=== PATIENT | female | born 1950 ===

== ENCOUNTER 2021-11-21 13:52 | Inpatient (IN) | payer MEDICARE ==
[~2021-11-21] VITALS: Ht 170.2 cm; Wt 81.9 kg
[2021-11-21] MEDS ORDERED: MORPHINE SULFATE 4 MG/ML SYR/VIAL IV ONE (15:00)
[2021-11-21] MEDS ORDERED: ONDANSETRON HCL 4 MG/2 ML VIAL IV ONE (15:00)
[2021-11-21] MEDS ORDERED: MORPHINE SULFATE INJECTION 2 MG/ML SYRG IV PRN ×3 (16:00→18:00)
[2021-11-21] MEDS ORDERED: ONDANSETRON HCL 4 MG/2 ML VIAL IV PRN (16:00)
[2021-11-21] MEDS ORDERED: NITROGLYCERIN 0.4 MG SL TAB SL PRN ×2 (16:00→18:00)
[2021-11-21] MEDS: SODIUM CHLORIDE 0.9% 1,000 ML IV SCH (16:22)
[2021-11-21 16:26] LABS: Urine Bacteria NONE SEEN /hpf (None Seen); Urine Blood Negative /uL (Negative); Urine Specific Gravity 1.014 (1.001-1.035); Urine WBC 1 /hpf (0 - 5)
[2021-11-21 16:33] LABS: Basophils # (auto) 0 10 ^3/uL (0-0.2); Basophils % (auto) 0.2 % (0.0-2.0); Eosinophils # (auto) 0 10 ^3/uL (0-0.8); Eosinophils % (auto) 0.3 % (0.0-7.0); Hematocrit 41.1 % (36.0-46.0); Hemoglobin 13.7 g/dL (12.2-16.2); Lymphocytes # (auto) 2.1 10 ^3/uL (0.4-5.4); Lymphocytes % (auto) 15.3 % (10.0-50.0); Mean Corpuscular Hemoglobin 29.7 pg (28.0-32.0); Mean Corpuscular Hgb Conc. 33.5 g/dL (32.0-36.0); Mean Corpuscular Volume 88.9 fL (80.0-100.0); Monocytes # (auto) 0.8 10 ^3/uL (0-1.3); Monocytes % (auto) 5.7 % (0.0-12.0); Neutrophils # (auto) 10.9 10 ^3/uL (1.6-8.6); Neutrophils % (auto) 78.5 % (37.0-80.0); Red Blood Cells 4.62 10^6/uL (4.0-5.20); Red Cell Distribution Width 13.1 % (11.8-14.3); White Blood Cell 13.9 10^3/uL (4.4-10.8)
[2021-11-21 16:58] LABS: INR 1.05 (0.9-1.15); Partial Thromboplastin Time 28.8 sec (23.6-33.0)
[2021-11-21 17:05] LABS: Calcium 8.7 mg/dL (8.5-10.1)
[2021-11-21 17:09] LABS: BUN/Creatinine Ratio 23.1; Bilirubin, Total 0.4 mg/dL (0.2-1.0); Total Protein 7.6 g/dL (6.4-8.2)
[2021-11-21 17:49] VITALS: BP 151/67
[2021-11-21] MEDS ORDERED: ceFAZolin 1GM/50ML 50 ML IV ONE (18:00)
[2021-11-21] MEDS ORDERED: HYDROcodone-ACET 5/325MG TAB PO PRN (18:00)
[2021-11-21] MEDS ORDERED: LORazepam 0.5 MG TAB PO PRN (18:00)
[2021-11-21] MEDS ORDERED: ACETAMINOPHEN 325 MG TAB PO PRN (18:00)
[2021-11-21] MEDS ORDERED: CALCIUM W/VIT D (600MG/400IU) TAB PO ONE (18:00)
[2021-11-21] MEDS ORDERED: ALUM & MAG HYDROX-SIMETH LIQ(MAALOX) 30 ML PO PRN (18:00)
[2021-11-21] MEDS ORDERED: DOCUSATE SOD 100 MG CAP PO PRN (18:00)
[2021-11-21 18:27] LABS: Cholesterol 201 mg/dL (< 200)
[2021-11-21 18:30] LABS: HDL Cholesterol 85 mg/dL (40-59); LDL Cholesterol 77 mg/dL (< 100); Triglycerides 95 mg/dL (< 150)
[2021-11-21] MEDS: CALCIUM W/VIT D (600MG/400IU) TAB PO SCH (18:33)
[2021-11-21 22:00] VITALS: BP 134/69
[2021-11-22] MEDS: ceFAZolin 1GM/50ML 50 ML IV SCH ×3 (02:00→17:52)
[2021-11-22 05:00] VITALS: BP 146/78
[2021-11-22 06:21] LABS: Basophils # (auto) 0 10 ^3/uL (0-0.2); Basophils % (auto) 0.4 % (0.0-2.0); Eosinophils # (auto) 0.1 10 ^3/uL (0-0.8); Eosinophils % (auto) 0.7 % (0.0-7.0); Hematocrit 36.2 % (36.0-46.0); Hemoglobin 12.4 g/dL (12.2-16.2); Lymphocytes # (auto) 2.5 10 ^3/uL (0.4-5.4); Mean Corpuscular Hemoglobin 30.1 pg (28.0-32.0); Mean Corpuscular Hgb Conc. 34.3 g/dL (32.0-36.0); Mean Corpuscular Volume 87.7 fL (80.0-100.0); Monocytes # (auto) 0.7 10 ^3/uL (0-1.3); Neutrophils # (auto) 5.4 10 ^3/uL (1.6-8.6); Neutrophils % (auto) 61.9 % (37.0-80.0); Nucleated Red Blood Cells % 0.1 %; Red Blood Cells 4.13 10^6/uL (4.0-5.20); Red Cell Distribution Width 13.2 % (11.8-14.3); White Blood Cell 8.7 10^3/uL (4.4-10.8)
[2021-11-22 07:13] LABS: INR 1.02 (0.9-1.15); Partial Thromboplastin Time 28.5 sec (23.6-33.0)
[2021-11-22 08:43] LABS: Albumin 3.1 g/dL (3.4-5.0); BUN/Creatinine Ratio 13.5; Bilirubin, Total 0.6 mg/dL (0.2-1.0); Magnesium 2.1 mg/dL (1.6-2.6); Phosphorus 3.8 mg/dL (2.5-4.90); Total Protein 6.2 g/dL (6.4-8.2)
[2021-11-22 09:00] VITALS: BP 146/81
[2021-11-22 09:21] LABS: Alcohol, Urine < 3.0 mg/dL (0-10); Amphetamine Screen, Urine NEGATIVE (NEGATIVE); Barbiturate Scree,Urine NEGATIVE (NEGATIVE); Benzodiazephine Screen, Urine NEGATIVE (NEGATIVE); Cannabinoid Screen, Urine NEGATIVE (NEGATIVE); Cocaine Screen, Urine NEGATIVE (NEGATIVE); Opiate Scree,Urine NEGATIVE (NEGATIVE); Phencyclidine Screen, Urine NEGATIVE (NEGATIVE)
[2021-11-22 09:31] LABS: Urine Bacteria NONE SEEN /hpf (None Seen); Urine Blood Negative /uL (Negative); Urine Specific Gravity 1.004 (1.001-1.035); Urine WBC 1 /hpf (0 - 5)
[2021-11-22] MEDS: SODIUM CHLORIDE 0.9% 1,000 ML IV SCH (10:18)
[2021-11-22] MEDS: CALCIUM W/VIT D (600MG/400IU) TAB PO SCH ×2 (10:18→17:53)
[2021-11-22] MEDS: ENOXAPARIN SOD 40 MG/0.4 ML SYRINGE SC SCH (10:19)
[2021-11-22 13:00] VITALS: BP 133/76
[2021-11-22 17:00] VITALS: BP 143/76
[2021-11-22 22:22] VITALS: BP 145/84
[2021-11-23] VITALS (18 sets, daily range): BP systolic 110–152; BP diastolic 48–77
[2021-11-23] MEDS: ceFAZolin 1GM/50ML 50 ML IV SCH ×3 (01:40→18:44)
[2021-11-23] MEDS: SODIUM CHLORIDE 0.9% 1,000 ML IV SCH (03:42)
[2021-11-23] MEDS ORDERED: SUCCINYLCHOLINE CHLORIDE 20 MG/ML 10ML VIAL IV ONE (07:43)
[2021-11-23] MEDS ORDERED: TETRACAINE 1% INJ 2 ML VIAL IJ ONE (07:43)
[2021-11-23] MEDS ORDERED: ceFAZolin 1GM/50ML 100 ML IV ONE (07:44)
[2021-11-23] MEDS ORDERED: MORPHINE SULF PF 2 MG/2 ML SYRG ONE ×3 (07:45→08:59)
[2021-11-23] MEDS ORDERED: fentaNYL CITRATE 100 MCG/2 ML VL ONE (07:45)
[2021-11-23] MEDS ORDERED: KETAMINE HCL 10 ML ONE (07:45)
[2021-11-23] MEDS ORDERED: MIDAZOLAM HCL 2MG/2ML 2ml VIAL (1mg/ml) ONE (07:45)
[2021-11-23] MEDS ORDERED: PROPOFOL 10 MG/ML 20 ML IV ONE (07:46)
[2021-11-23] MEDS ORDERED: ONDANSETRON HCL 4 MG/2 ML VIAL ONE (07:46)
[2021-11-23] MEDS ORDERED: PHENYLEPHRINE HCL 10 MG/ML VL ONE (07:46)
[2021-11-23] MEDS ORDERED: ePHEDrine SULFATE 50 MG/ML AMP ONE (07:46)
[2021-11-23] MEDS ORDERED: GLYCOPYRROLATE 0.2 MG/ML 1ML VIAL ONE (07:46)
[2021-11-23] MEDS ORDERED: ceFAZolin 1GM/50ML 50 ML IV ONE (07:49)
[2021-11-23] MEDS ORDERED: VANCOMYCIN HCL 1000 MG VL ONE (07:59)
[2021-11-23] MEDS: KETOROLAC TROMETH 30 MG/ML 1ML VIAL ONE ×2 (07:59→08:40)
[2021-11-23] MEDS: CALCIUM W/VIT D (600MG/400IU) TAB PO SCH ×2 (08:00→18:44)
[2021-11-23] MEDS: ENOXAPARIN SOD 40 MG/0.4 ML SYRINGE SC SCH (10:00)
[2021-11-23] MEDS ORDERED: BISACODYL 5 MG EC TAB PO PRN (10:15)
[2021-11-23] MEDS ORDERED: NALOXONE HCL 0.4 MG/ML VIAL IV PRN (10:15)
[2021-11-23] MEDS ORDERED: ONDANSETRON HCL 4 MG/2 ML VIAL IV PRN ×2 (10:15)
[2021-11-23] MEDS ORDERED: diphenhdrAMINE HCL 50 MG/1 ML VL IV PRN (10:15)
[2021-11-23] MEDS ORDERED: KETOROLAC TROMETH 30 MG/ML 1ML VIAL IV ONE (10:15)
[2021-11-23] MEDS ORDERED: DexAMETHasone SOD PHOS 10MG/1ML VIAL INJ IV PRN (10:15)
[2021-11-23] MEDS ORDERED: KETOROLAC TROMETH 30 MG/ML 1ML VIAL IV PRN (10:15)
[2021-11-23] MEDS: LACTATED RINGER'S 1,000 ML IV SCH ×2 (11:13→22:41)
[2021-11-23] MEDS: SODIUM CHLOR 0.9% PF (SALINE LOCK) 10ML VIAL/SYR IV SCH ×2 (13:41→22:35)
[2021-11-23] MEDS: DOCUSATE SOD 100 MG CAP PO SCH (22:35)
[2021-11-24] VITALS (14 sets, daily range): BP systolic 103–139; BP diastolic 58–86
[2021-11-24] MEDS: ceFAZolin 1GM/50ML 50 ML IV SCH (00:23)
[2021-11-24 05:06] LABS: Basophils # (auto) 0 10 ^3/uL (0-0.2); Basophils % (auto) 0.5 % (0.0-2.0); Eosinophils # (auto) 0.2 10 ^3/uL (0-0.8); Eosinophils % (auto) 2.5 % (0.0-7.0); Hematocrit 33.8 % (36.0-46.0); Hemoglobin 11.5 g/dL (12.2-16.2); Lymphocytes # (auto) 2.5 10 ^3/uL (0.4-5.4); Mean Corpuscular Hemoglobin 29.6 pg (28.0-32.0); Mean Corpuscular Hgb Conc. 33.9 g/dL (32.0-36.0); Mean Corpuscular Volume 87.3 fL (80.0-100.0); Monocytes % (auto) 11.5 % (0.0-12.0); Neutrophils # (auto) 4.8 10 ^3/uL (1.6-8.6); Neutrophils % (auto) 56.5 % (37.0-80.0); Red Blood Cells 3.87 10^6/uL (4.0-5.20); Red Cell Distribution Width 12.8 % (11.8-14.3); White Blood Cell 8.5 10^3/uL (4.4-10.8)
[2021-11-24 05:25] LABS: Albumin 2.8 g/dL (3.4-5.0); Calcium 9.1 mg/dL (8.5-10.1); Magnesium 1.9 mg/dL (1.6-2.6); Potassium 4.1 mmol/L (3.5-5.1)
[2021-11-24 05:28] LABS: Bilirubin, Total 0.9 mg/dL (0.2-1.0); Total Protein 5.6 g/dL (6.4-8.2)
[2021-11-24] MEDS: LACTATED RINGER'S 1,000 ML IV SCH ×3 (06:15→18:17)
[2021-11-24] MEDS: SODIUM CHLOR 0.9% PF (SALINE LOCK) 10ML VIAL/SYR IV SCH ×3 (06:44→22:22)
[2021-11-24] MEDS: KETOROLAC TROMETH 30 MG/ML 1ML VIAL IV SCH ×3 (06:45→22:21)
[2021-11-24] MEDS: ACETAMINOPHEN 325 MG TAB PO PRN (07:29)
[2021-11-24] MEDS: ENOXAPARIN SOD 40 MG/0.4 ML SYRINGE SC SCH (09:02)
[2021-11-24] MEDS: CALCIUM W/VIT D (600MG/400IU) TAB PO SCH ×2 (09:03→18:21)
[2021-11-24] MEDS: PANTOPRAZOLE 40 MG TAB PO SCH (09:03)
[2021-11-24] MEDS: DOCUSATE SOD 100 MG CAP PO SCH ×2 (09:03→22:22)
[2021-11-24] MEDS: ONDANSETRON HCL 4 MG/2 ML VIAL IV PRN (10:38)
[2021-11-24] MEDS ORDERED: HYDROcodone-ACET 10/325MG TAB PO PRN (10:45)
[2021-11-24 13:20] LABS: Hemoglobin 11.1 g/dL (12.2-16.2)
[2021-11-25 05:00] VITALS: BP 132/72
[2021-11-25 05:43] LABS: Hematocrit 30.6 % (36.0-46.0); Hemoglobin 10.4 g/dL (12.2-16.2)
[2021-11-25] MEDS: SODIUM CHLOR 0.9% PF (SALINE LOCK) 10ML VIAL/SYR IV SCH (05:47)
[2021-11-25 09:00] VITALS: BP 115/50
[2021-11-25] MEDS: DOCUSATE SOD 100 MG CAP PO SCH (09:25)
[2021-11-25] MEDS: CALCIUM W/VIT D (600MG/400IU) TAB PO SCH (09:25)
[2021-11-25] MEDS: PANTOPRAZOLE 40 MG TAB PO SCH (09:25)
[2021-11-25] MEDS: ENOXAPARIN SOD 40 MG/0.4 ML SYRINGE SC SCH (09:26)
[2021-11-25] MEDS: ONDANSETRON HCL 4 MG/2 ML VIAL IV PRN (09:28)
[2021-11-25] MEDS: ACETAMINOPHEN 325 MG TAB PO PRN (09:28)
[2021-11-25] MEDS ORDERED: DOCU100C10 PO (12:24)
[2021-11-25] MEDS ORDERED: ENO40SY SC (12:24)
[2021-11-25] MEDS ORDERED: HYDR-4902 PO ×2 (12:24→13:17)
[2021-11-25 13:00] VITALS: BP 113/53
[2021-11-25 17:00] VITALS: BP 119/60
== END 2021-11-25 17:25 | disposition home health service (06) | DRG 522 ==
LOC: ER 13:52 → EDBD 13:52 → OVERFLOW 15:58 → TELE-CENTR 17:46 → CENTRAL 11-22 02:27
PROVIDERS: ADMIT Hospitalist; ATTEND Internal Medicine Geriatric Medicine
PROC: 8E0YXBZ Computer Assisted Procedure of Lower Extremity (ICD-10-PCS; 2021-11-23)
PROC: 0SR906Z Replacement of Right Hip Joint with Oxidized Zirconium on Polyethylene Synthetic Substitute, Open Approach (ICD-10-PCS; principal; 2021-11-23 08:04)
DX: S72.091A Other fracture of head and neck of right femur, initial encounter for closed fracture (principal); E44.1 Mild protein-calorie malnutrition; M85.80 Other specified disorders of bone density and structure, unspecified site; Z20.822 Contact with and (suspected) exposure to COVID-19; W18.39XA Other fall on same level, initial encounter; M81.0 Age-related osteoporosis without current pathological fracture; Z90.710 Acquired absence of both cervix and uterus; Z68.28 Body mass index [BMI] 28.0-28.9, adult; Y93.89 Activity, other specified; Y99.8 Other external cause status; Y92.098 Other place in other non-institutional residence as the place of occurrence of the external cause
CPT/HCPCS: 36415; 71045; 72170; 73502; 73700; 80053; 80061; 80307; 81001; 82306; 83036; 83735; 83880; 84100; 84443; 84484; 84550; 85014; 85018; 85025; 85379; 85610; 85730; 86850; 86900; 86901; 87040; 87086; 87426; 93005; 93306; 93970; 96361; 96374; 96375; 97110; 97116; 97163; 97530; G0378; J0330; J0690; J1885; J2250; J2405; J2704

== ENCOUNTER → 2022-05-13 | Outpatient (CLI) | payer MEDICARE ==
[~2022-05-13] VITALS: Ht 172.7 cm; Wt 63.5 kg
[~2022-05-13] MED LIST: BUPIVACAINE HCL 0.25% P/F 10 ML VIAL ONE; DOCU100C10 PO; ENO40SY SC; HYDR-4902 PO; IOHEXOL 300 MG/ML 100ML BOTTLE IJ ONE; LIDOCAINE 2%HCL (LOCAL ANESTH.) INJ 10ml MDV ONE; methylPREDNISolone ACETATE 80 MG/ML VL IM ONE
== END | disposition home or self-care (01) ==
LOC: XYW 13:37
PROVIDERS: ATTEND Orthopaedic Surgery Adult Reconstructive Orthopaedic Surgery
DX: M19.071 Primary osteoarthritis, right ankle and foot (principal); M77.31 Calcaneal spur, right foot
CPT/HCPCS: 73600; 76000; J2001; J3490; Q9967